=== PATIENT | female | born 1960 | race Caucasian/White ===

== ENCOUNTER 2017-04-04 18:50 | Emergency (ER) | payer OTHER ==
[~2017-04-04] VITALS: Ht 157.5 cm; Wt 53.5 kg
[~2017-04-04 18:50] MED LIST: CRUTCH3 XX; Norco 5-325 Ta1 EACH PO; Prednisone20 MG PO; SULTRISS PO; TRIA80TC TOP; Vistaril25 MG PO
[2017-11-21] MEDS ORDERED: ONDA4ODT MM (16:44)
== END 2017-04-04 20:10 | disposition home or self-care (01) ==
LOC: ER 18:50
DX: H92.01 Otalgia, right ear (principal); F17.200 Nicotine dependence, unspecified, uncomplicated
CPT/HCPCS: 99282

== ENCOUNTER 2017-08-21 06:41 | Emergency (ER) | payer OTHER ==
[~2017-08-21] VITALS: Ht 157.5 cm; Wt 50.8 kg
[2017-08-21 07:11] LABS: BASOPHILS ABSOLUTE AUTO 0.04 K/mm3 (0.00-0.23); BASOPHILS PERCENT AUTO 0 % (0-2); EOSINOPHILS ABSOLUTE AUTO 0.16 K/mm3 (0.00-0.68); EOSINOPHILS PERCENT AUTO 2 % (0-6); Hemoglobin 14.5 g/dL (11.5-16.0); IMMATURE GRAN ABSOLUTE AUTO 0.03 K/mm3 (0.00-0.10); IMMATURE GRAN PERCENT AUTO 0 % (0-1); LYMPHOCYTES ABSOLUTE AUTO 2.87 K/mm3 (0.84-5.20); LYMPHOCYTES PERCENT AUTO 32 % (21-46); MONOCYTES ABSOLUTE AUTO 0.58 K/mm3 (0.16-1.47); MONOCYTES PERCENT AUTO 6 % (4-13); Mean Corpuscular HGB 30.4 pg (26.0-34.0); Mean Corpuscular Volume 92 fL (80-100); Mean Platelet Volume 10.6 fL (9.1-12.4); NEUTROPHILS ABSOLUTE AUTO 5.43 K/mm3 (1.96-9.15); NEUTROPHILS PERCENT AUTO 60 % (41-73); Platelet Count 259 K/mm3 (150-400); RDW Coefficient Variation 13.1 % (11.7-14.2); RDW Standard Deviation 43.9 fL (35.1-46.3); Red Blood Cell Count 4.77 M/mm3 (3.80-5.20); White Blood Cell Count 9.11 K/mm3 (4.00-11.30)
[2017-08-21 07:24] LABS: Alanine Aminotransfer (ALT/SGP 22 U/L (12-78); Albumin, Blood 3.3 g/dL (3.4-5.0); Albumin/Globulin Ratio 0.8 (0.8-1.8); Alk Phos 102 U/L (50-136); Anion Gap 9 mmol/L (6-16); Aspartate Aminotrans (AST/SGOT 37 U/L (12-37); Bilirubin, Total 0.5 mg/dL (0.1-1.0); Blood Urea Nitrogen 9 mg/dL (8-24); Bun/Creatinine Ratio 14.8 (12.0-20.0); CO2, Blood 20 mmol/L (21-32); Calcium, Blood 8.3 mg/dL (8.5-10.1); Chloride, Blood 111 mmol/L (98-108); Creatinine, Blood 0.61 mg/dL (0.40-1.00); Globulin, Blood 4.3 g/dL (2.2-4.0); Glomerular Filtration Rate >60 (60-); Glucose, Blood 105 mg/dL (70-99); Potassium, Blood 5.4 mmol/L (3.5-5.5); Sodium, Blood 140 mmol/L (136-145); Total Protein, Blood 7.6 g/dL (6.4-8.2); Troponin I <0.015 ng/mL (0.000-0.040)
== END 2017-08-21 11:02 | disposition home or self-care (01) ==
LOC: ER 06:41
PROVIDERS: Emergency Medicine
DX: R07.9 Chest pain, unspecified (principal); R19.7 Diarrhea, unspecified; F17.200 Nicotine dependence, unspecified, uncomplicated
CPT/HCPCS: 71046; 80053; 84484; 85025; 93005; 93010; 99284

== ENCOUNTER 2017-09-12 13:09 | Emergency (ER) | payer OTHER ==
[~2017-09-12] VITALS: Ht 157.5 cm; Wt 57.1 kg
== END 2017-09-12 14:10 | disposition home or self-care (01) ==
LOC: ER 13:09
DX: S40.211A Abrasion of right shoulder, initial encounter (principal); S80.211A Abrasion, right knee, initial encounter; X58.XXXA Exposure to other specified factors, initial encounter; F17.200 Nicotine dependence, unspecified, uncomplicated
CPT/HCPCS: 99282

== ENCOUNTER 2018-03-03 21:53 | Emergency (ER) | payer OTHER ==
[~2018-03-03] VITALS: Ht 157.5 cm; Wt 55.6 kg
[~2018-03-03 21:53] MED LIST changes: +ONDA4ODT MM
[2018-03-04] MEDS ORDERED: Vibramycin100 MG PO (01:38)
== END 2018-03-04 01:58 | disposition home or self-care (01) ==
LOC: ER 21:53
DX: L70.0 Acne vulgaris (principal); F17.210 Nicotine dependence, cigarettes, uncomplicated
CPT/HCPCS: 99283; J1885

== ENCOUNTER 2018-06-25 07:35 | Day surgery (SDC) | payer OTHER ==
[~2018-06-25 07:35] MED LIST changes: +Vibramycin100 MG PO
== END 2018-06-25 22:59 | disposition home or self-care (01) ==
LOC: WOUND 07:35
DX: L97.329 Non-pressure chronic ulcer of left ankle with unspecified severity (principal); L97.519 Non-pressure chronic ulcer of other part of right foot with unspecified severity
CPT/HCPCS: G0463

== ENCOUNTER 2018-12-26 10:14 | Day surgery (SDC) | payer OTHER ==
[~2018-12-26] VITALS: Ht 157.5 cm; Wt 67.3 kg
== END 2018-12-26 12:32 | disposition home or self-care (01) ==
LOC: ORSCSDS 10:14
PROVIDERS: Internal Medicine Gastroenterology
PROC: 0DBP8ZX Excision of Rectum, Via Natural or Artificial Opening Endoscopic, Diagnostic (ICD-10-PCS; principal; 2018-12-26 11:45)
PROC: 0DBC8ZX Excision of Ileocecal Valve, Via Natural or Artificial Opening Endoscopic, Diagnostic (ICD-10-PCS; principal; 2018-12-26 11:45)
DX: K62.5 Hemorrhage of anus and rectum (principal); K62.1 Rectal polyp; K64.8 Other hemorrhoids; K64.4 Residual hemorrhoidal skin tags; F17.210 Nicotine dependence, cigarettes, uncomplicated; Z79.899 Other long term (current) drug therapy
CPT/HCPCS: 88305; J2250; J2704; J7120

== ENCOUNTER 2020-02-06 13:09 | Emergency (ER) | payer OTHER ==
[~2020-02-06] VITALS: Ht 157.5 cm; Wt 63.5 kg
[2020-02-06 16:29] LABS: Source, Urine Voided
[2020-02-06 16:53] LABS: BASOPHILS ABSOLUTE AUTO 0.05 K/mm3 (0.00-0.23); BASOPHILS PERCENT AUTO 1 % (0-2); EOSINOPHILS PERCENT AUTO 1 % (0-6); Hematocrit 49.1 % (33.0-51.0); IMMATURE GRAN ABSOLUTE AUTO 0.02 K/mm3 (0.00-0.10); IMMATURE GRAN PERCENT AUTO 0 % (0-1); LYMPHOCYTES ABSOLUTE AUTO 3.05 K/mm3 (0.84-5.20); LYMPHOCYTES PERCENT AUTO 30 % (21-46); MONOCYTES ABSOLUTE AUTO 0.72 K/mm3 (0.16-1.47); MONOCYTES PERCENT AUTO 7 % (4-13); Mean Corpuscular HGB 30.2 pg (26.0-34.0); Mean Corpuscular HGB Conc 32.6 g/dL (31.5-36.5); Mean Corpuscular Volume 93 fL (80-100); Mean Platelet Volume 9.3 fL (9.1-12.4); NEUTROPHILS ABSOLUTE AUTO 6.24 K/mm3 (1.96-9.15); NEUTROPHILS PERCENT AUTO 61 % (41-73); Platelet Count 293 K/mm3 (150-400); RDW Coefficient Variation 13.5 % (11.7-14.2); RDW Standard Deviation 45.7 fL (35.1-46.3); Red Blood Cell Count 5.29 M/mm3 (3.80-5.20); White Blood Cell Count 10.18 K/mm3 (4.00-11.30)
[2020-02-06 16:56] LABS: Alanine Aminotransfer (ALT/SGP 21 U/L (12-78); Albumin, Blood 3.8 g/dL (3.4-5.0); Albumin/Globulin Ratio 0.9 (0.8-1.8); Alk Phos 128 U/L (50-136); Anion Gap 5 mmol/L (6-16); Aspartate Aminotrans (AST/SGOT 16 U/L (12-37); Bilirubin, Total 0.4 mg/dL (0.1-1.0); Blood Urea Nitrogen 11 mg/dL (8-24); Bun/Creatinine Ratio 12.9 (12.0-20.0); CO2, Blood 26 mmol/L (21-32); Chloride, Blood 111 mmol/L (98-108); Creatinine, Blood 0.85 mg/dL (0.40-1.00); Ethanol (Alcohol), Blood, Med <3 mg/dL; Globulin, Blood 4.2 g/dL (2.2-4.0); Glomerular Filtration Rate >60 (60-); Glucose, Blood 93 mg/dL (70-99); Magnesium, Blood 2.4 mg/dL (1.6-2.4); Potassium, Blood 3.9 mmol/L (3.5-5.5); Sodium, Blood 142 mmol/L (136-145)
[2020-02-06 17:01] LABS: Appearance, Urine Clear (Clear); Bilirubin, Urine Neg (Neg); Blood, Urine 1+ (Neg); Color, Urine Amber (P-Yellow); Glucose Qualitative, Urine Neg (Neg); Ketones, Urine 1+ (Neg); Leukocyte Esterase, Urine Neg (Neg); Nitrite, Urine Neg (Neg); Protein, Urine Neg (Neg); Specific Gravity, Urine 1.015 (1.003-1.022); Urobilinogen, Urine 1+ (Normal); pH, Urine 6.5 (5.0-8.0)
[2020-02-06 17:13] LABS: Bacteria Many /hpf
[2020-02-06 17:14] LABS: Amorphous Light (0-Heavy); Mucus Light (0-Heavy); Squamous Epithelial Cells Few /hpf (Few)
[2020-02-06 17:18] LABS: U Amphetamine Screen Not Detected; U Barbituate Screen Not Detected; U Benzodiazapine Screen Not Detected; U Buprenorphine Screen Not Detected; U Cannabinoids Screen DETECTED; U Cocaine Screen Not Detected; U Methadone Screen Not Detected; U Methamphetamine Screen Not Detected; U Opiates Screen Not Detected; U Oxycodone Screen Not Detected; U Phencyclidine Screen Not Detected; U Propoxyphene Screen Not Detected
== END 2020-02-06 18:32 | disposition home or self-care (01) ==
LOC: ER 13:09
PROVIDERS: Emergency Medicine
DX: R41.82 Altered mental status, unspecified (principal); F17.210 Nicotine dependence, cigarettes, uncomplicated; Z86.73 Personal history of transient ischemic attack (TIA), and cerebral infarction without residual deficits
CPT/HCPCS: 36415; 70450; 71045; 80053; 81001; 83735; 84443; 85025; 87086; 93005; 93010; 99285-25; G0480

== ENCOUNTER 2022-05-28 11:22 | Emergency (ER) | payer OTHER ==
[~2022-05-28] VITALS: Ht 157.5 cm; Wt 56.2 kg
== END 2022-05-28 13:45 | disposition left against medical advice (07) ==
LOC: ER 11:22
DX: R60.0 Localized edema (principal); Z53.21 Procedure and treatment not carried out due to patient leaving prior to being seen by health care provider
CPT/HCPCS: 99281

== ENCOUNTER → 2022-05-29 | Outpatient (CLI) | payer OTHER | LOC: LAB 10:00 → LAB SHORT 10:00 | DX: H60.12 Cellulitis of left external ear (principal) | CPT/HCPCS: 87070; 87075; 87205 ==

== ENCOUNTER → 2022-06-04 | Outpatient (CLI) | payer OTHER ==
[2022-06-04 10:22] LABS: Automated BF RBC Count 0.048 M/mm3 (0-0)
[2022-06-04 10:38] LABS: Body Fluid WBC Count 110 /mm3 (0-999); RBC Count, Body Fluid 48000 /mm3 (0-0)
[2022-06-04 11:32] LABS: Appearance, Body Fluid Cloudy (Clear); Color, Body Fluid Red (None-Yellow); Total Cell Count, Body Fluid 100
== END | disposition home or self-care (01) ==
LOC: LAB SHORT 09:45 → LAB 09:45
PROVIDERS: Nurse Practitioner
DX: H61.92 Disorder of left external ear, unspecified (principal)
CPT/HCPCS: 89051

== ENCOUNTER → 2022-06-26 | Outpatient (CLI) | payer OTHER | LOC: LAB SHORT 11:00 → LAB 11:00 | DX: L08.9 Local infection of the skin and subcutaneous tissue, unspecified (principal) | CPT/HCPCS: 87070; 87205 ==

== ENCOUNTER → 2024-05-12 | Outpatient (CLI) | payer OTHER | END | disposition home or self-care (01) | LOC: LAB 08:28 → PLD 08:28 | DX: L30.9 Dermatitis, unspecified (principal); L03.90 Cellulitis, unspecified; I73.00 Raynaud's syndrome without gangrene | CPT/HCPCS: 88305; 88312; 88313 ==